=== PATIENT | female | born 1960 | race Caucasian/White ===

== ENCOUNTER 2018-02-25 10:09 | Day surgery (SDC) | payer OTHER ==
[~2018-02-25] VITALS: Ht 162.6 cm; Wt 68.0 kg
[~2018-02-25 10:09] MED LIST: CLARITIN 10 MG10 MG PO; COPAXONE INJ20 MG/ML SQ; ESTRACE1 MG PO; GABAPENTIN100 MG PO; PROZAC10 MG PO; VITAMIN D2000 UNIT PO
[2018-02-25 10:49] LABS: HEMATOCRIT 39.8 % (36.0-48.0); HEMOGLOBIN 13.5 g/dL (12-16); MCH 30.2 pg (26.0-34.0); MCHC 33.9 g/dL (31.0-37.0); MEAN PLATELET VOLUME 10.5 fL (7.4-10.4); RBC 4.47 10x6/uL (4.00-5.40); RDW 11.9 % (11.5-14.5); WBC 5.1 10x3/uL (4.8-10.8)
[2018-02-25 12:36] VITALS: BP 151/58; Ht 162.6 cm; Wt 68.0 kg
== END 2018-02-25 17:40 | disposition home or self-care (01) ==
LOC: D.OPS 10:09 → D.PAN 12:00 → D.OPS 12:00 → D.PAN 12:30 → D.OPS 17:40
PROVIDERS: Anesthesiology
DX: M20.42 Other hammer toe(s) (acquired), left foot (principal)